=== PATIENT | male | born 1970 | race Caucasian/White ===

== ENCOUNTER 2020-03-10 21:06 | Emergency (ER) | payer OTHER ==
[~2020-03-10] VITALS: Ht 185.4 cm; Wt 131.5 kg
[2020-03-11 08:54] VITALS: BP 112/87
== END 2020-03-11 08:54 | disposition home or self-care (01) ==
LOC: ER 21:06
DX: F10.129 Alcohol abuse with intoxication, unspecified (principal); Y90.9 Presence of alcohol in blood, level not specified